=== PATIENT | female | born 1955 | race Caucasian/White ===

== ENCOUNTER 2019-07-13 12:14 | Day surgery (SDC) | payer OTHER, SELFPAY ==
[2019-07-13 13:01] VITALS: BP 123/75; PULSE 69; RESP 16; TEMP 36.3; O2SAT 100; BMI 17.9
[2019-07-13] MEDS: SODIUM CHLORIDE 0.9% 1,000 ML 200 ML IV (13:05)
--- NOTE | 2019-07-13 13:46 | PM.HP.1 ---
History of Present Illness History of Present Illness Date Patient Seen: 07/13/19 Time Patient Seen: 13:47 Chief complaint: [id number] SCREENING COLONOSCOPY Narrative: Patient presents for colorectal screening. They had previous colonoscopy 11 years ago that was reportedly negative. On further history denies any recent gastrointestinal symptoms. No nausea, vomiting, abdominal pain, loss of appetite, unexplained weight loss, change in bowel habits, diarrhea, constipation, melena, hematochezia, or bright red blood per rectum. Patient History Medical History (Updated 07/13/19 @ 13:48 by Seb Mohr MD) Breast cancer (Acute) Surgical History (Updated 07/13/19 @ 13:48 by Seb Mohr MD) H/O lumpectomy (Acute) Social History household members: none Family & Social History Social History: household members none Meds Home Medications and Allergies Home Medications Medication Instructions Recorded Confirmed Type alprazolam 0.5 mg tablet 0.5 mg PO DAILY 03/27/19 07/13/19 History tumeric 1,500 mg PO DAILY 03/27/19 04/23/19 History calcium carbonate [Calcium 500] 500 mg PO BID 07/13/19 07/13/19 History Allergies Allergy/AdvReac Type Severity Reaction Status Date / Time No Known Drug Allergies Allergy Verified 07/13/19 12:57 Review of Systems Review of Systems ROS Unobtainable: All systems reviewed & are unremarkable except as noted in HPI and below Exam Vital Signs (past 8 hours): - 07/13/19 13:01 Temperature 97.3 F L Pulse Rate 69 Respiratory Rate 16 Blood Pressure 123/75 Pulse Oximetry 100 Oxygen Delivery Method Room Air Narrative Exam Narrative: General-adult female no acute distress, well nourished HEENT-moist mucous membranes, no scleral icterus Neck-supple with full range of motion, no lymphadenopathy Chest- no labored respirations, clear to auscultation bilaterally Cardiac-regular rate and rhythm Abdomen-soft, nontender, non distended Extremities-no edema, warm well perfused Neurological-alert and oriented x 3. No focal deficits Skin-normal temperature and turgor, no rashes or ulcers Assessment & Plan Assessment and plan (1) Screening for colon cancer: Current visit: Yes Status: Acute Assessment & Plan narrative: Patient is requiring colorectal screening. Colonoscopy is recommended. Technical details were discussed. Risks, benefits, alternatives explained. Risks including but not limited to sedation, aspiration, bleeding, pain, missed lesion, incomplete examination, need for further radiographic studies, colonic perforation, need for major abdominal surgery, and all attendant risks major surgery were discussed at length. All questions were answered to their satisfaction, and they voiced understanding.
--- NOTE | 2019-07-13 14:45 | PM.OP.ENDO ---
Operative Date/Time/Diagnoses Date of procedure: 07/13/19 Time of procedure: 14:45 Pre-op diagnosis: screening colonoscopy Post-op diagnosis: same Procedure & Clinicians Study performed: colonoscopy Same procedure as scheduled: Yes Indications: 64F last colonoscopy 11 years ago presents for screening colonoscopy Surgeon: Seb Mohr Procedure Notes SCOAP/Timeout: Performed Procedure in detail: Rectal exam was performed demonstrated external hemorrhoids. Scope was inserted into the rectum and advanced through the colon. The ileocecal valve was reached. The scope was then slowly withdrawn. Pathology of the colon was notable for diverticulosis only. There were no masses polyps or colitis. The scope was retroflexed within the rectum demonstrated grade 1 internal hemorrhoids. Rectum was then desufflated and the scope removed. Scope withdrawal time: 8 Sedation minutes: 30 Findings: diverticulosis Impression: Diverticulosis Post-procedure Recommendations: Colonscopy in 10 years Disposition: same day surgery
[2019-07-13] MEDS: fentaNYL 250 MCG/5 ML INJ IV (14:48)
[2019-07-13] MEDS: MIDAZOLAM 5 MG/5 ML VIAL IV (14:49)
[2019-07-13 14:50] VITALS: BP 104/73; PULSE 70; RESP 15; TEMP 36.8; O2SAT 100
[2019-07-13 14:53] VITALS: BP 114/73; PULSE 69; RESP 16; O2SAT 100
[2019-07-13 14:56] VITALS: BP 115/73; PULSE 70; RESP 15; O2SAT 100
[2019-07-13 14:59] VITALS: BP 107/72; PULSE 69; RESP 13; O2SAT 100
[2019-07-13 15:11] VITALS: BP 116/71; PULSE 63; RESP 13; O2SAT 100
== END 2019-07-13 15:43 | disposition home or self-care (01) ==
PROVIDERS: PCP Physician Assistant; Visit Provider Surgery
PROC: 0DJD8ZZ Inspection of Lower Intestinal Tract, Via Natural or Artificial Opening Endoscopic (ICD-10-PCS; CPT 45378; principal; 2019-07-13 13:45)
DX: Z12.11 Encounter for screening for malignant neoplasm of colon (principal); K57.30 Diverticulosis of large intestine without perforation or abscess without bleeding
CPT/HCPCS: 45378; 99152; 99153; J2250; J3010

== ENCOUNTER → 2021-07-25 11:10 | Outpatient (CLI) | payer OTHER, SELFPAY ==
[2021-07-25 11:56] LABS: COVID19 -Nasal RAPID Negative (Negative)
== END ==
PROVIDERS: PCP Physician Assistant; Visit Provider Nurse Practitioner
DX: Z20.822 Contact with and (suspected) exposure to COVID-19 (principal)
CPT/HCPCS: 87635

== ENCOUNTER 2023-08-09 12:15 | Emergency (ER) | payer OTHER, SELFPAY ==
[2023-08-09 12:49] VITALS: BP 135/66; PULSE 69; RESP 17; TEMP 36.6; O2SAT 99; BMI 19.5
--- NOTE | 2023-08-09 12:55 | DI.RAD.S_ITS ---
PROCEDURE: XR HUMERUS LT 2V INDICATIONS: fall TECHNIQUE: 2 views of the humerus were acquired. COMPARISON: None. FINDINGS: Bones: Comminuted displaced angulated proximal shaft fracture of the humerus. No suspicious bony lesions. Soft tissues: No suspicious soft tissue calcifications. IMPRESSION: Comminuted, displaced, angulated proximal shaft fracture of the humerus. Dictated by: Michael Ashraf M.D. on 08/09/2023 at 13:40 Approved by: Michael Ashraf M.D. on 08/09/2023 at 13:41
[2023-08-09 14:09] VITALS: BP 147/84; PULSE 70; O2SAT 100
--- NOTE | 2023-08-09 14:20 | ED_ITS ---
HPI - Extremity Injury (Upper) General Chief Complaint: Extremity Injury, Upper Stated Complaint: fall arm injury/ diff breathing Time Seen by Provider: 08/09/23 14:03 Source: patient Mode of arrival: Ambulatory History of Present Illness HPI narrative: Patient presents for left shoulder/arm pain after fall. patient fell down several stairs, landing on L arm. Denies head injuyr, denies LOC, denies blood thinner use. Obvious deformity L shoulder Related Data Home Medications Medication Instructions Recorded Confirmed alprazolam 0.5 mg tablet 0.5 mg PO DAILY 03/27/19 07/25/21 tumeric 1,500 mg PO DAILY 03/27/19 07/25/21 calcium carbonate 500 mg calcium 500 mg PO BID 07/13/19 07/25/21 (1,250 mg) tablet (Calcium 500) Previous Rx's Medication Instructions Recorded methocarbamol 500 mg tablet 500 mg PO TID #30 tabs 08/09/23 oxycodone-acetaminophen 5 mg-325 1 tab PO Q4-6H PRN pain #14 tabs 08/09/23 mg tablet (Percocet) Allergies Allergy/AdvReac Type Severity Reaction Status Date / Time No Known Drug Allergies Allergy Verified 08/09/23 12:54 Review of Systems Review of Systems Narrative: Negative except as noted above Patient History Medical History Breast cancer Sinusitis Surgical History H/O lumpectomy Social History household members: none Smoking Status: Never smoker Smoking Status: Never smoker Alcohol type: other Substance Use Type: does not use Exam Initial Vital Signs Initial Vital Signs: Vital Signs Temperature 98 F 08/09/23 12:49 Pulse Rate 69 08/09/23 12:49 Respiratory Rate 17 08/09/23 12:49 Blood Pressure 135/66 08/09/23 12:49 Pulse Oximetry 99 08/09/23 12:49 Oxygen Delivery Method Room Air 08/09/23 12:49 Const: Awake, alert, uncomfortable Eyes: PERRL, EOMI, conjunctiva normal ENT: Atraumatic, dentition normal, mucous membranes moist MSK: deformity L shoulder, ROM decreased due to pain, shot polisher strength intact, sensation intact Skin: Warm, Dry, intact, no rashes Neuro: AO x3, CN II-XII grossly intact, moves all extremities Course Course Course Narrative: Shoulder deformity after fall. Obvious humerus fracture. Neurovascular intact. Patient given pain medications, placed in sling to gravity. Referred to or thopedics. Orders Ordered: Discontinued Medications Acetaminophen (Ofirmev) 1,000 mg in 100 mls @ 400 mls/hr IV NOW ONE Stop: 08/09/23 14:27 Last Infusion: 08/09/23 15:25 Dose: Infused Documented By: Admin: 08/09/23 14:43 Dose: 400 mls/hr Documented By: SB Ketorolac Tromethamine (Ketorolac 30 Mg/Ml Vial) 15 mg IV NOW ONE Stop: 08/09/23 14:21 Last Admin: 08/09/23 14:42 Dose: 15 mg Documented By: SB Methocarbamol (Methocarbamol 500 Mg Tablet) 750 mg PO NOW ONE Stop: 08/09/23 14:04 Last Admin: 08/09/23 14:34 Dose: 750 mg Documented By: SB Morphine Sulfate (Morphine 4 Mg/Ml Inj) 4 mg IV NOW ONE Stop: 08/09/23 14:14 Last Admin: 08/09/23 14:43 Dose: 4 mg Documented By: SB Oxycodone HCl (Oxycodone Ir 5 Mg Tablet) 5 mg PO NOW ONE Stop: 08/09/23 14:04 Last Admin: 08/09/23 15:31 Dose: Not Given Documented By: KLS Vital Signs Vital signs: Vital Signs - 8 hr 08/09/23 12:49 Temperature 98 F Pulse Rate 69 Respiratory Rate 17 Blood Pressure 135/66 Pulse Oximetry 99 Oxygen Delivery Method Room Air Discharge Plan Departure Patient Disposition: Home Clinical Impression: Fracture, humerus closed Instructions: How to Use a Sling, DI for Humeral Fracture Prescriptions: New oxycodone-acetaminophen [Percocet] 5-325 mg tablet 1 tab PO Q4-6H PRN (Reason: pain) Qty: 14 0RF methocarbamol 500 mg tablet 500 mg PO TID Qty: 30 0RF No Action alprazolam 0.5 mg tablet 0.5 mg PO DAILY tumeric 1,500 mg PO DAILY calcium carbonate [Calcium 500] 500 mg calcium (1,250 mg) Tablet 500 mg PO BID Referrals: Colleen Latif PA-C [Primary Care Provider] - Lashonda William MD [Physician] - Stand Alone Forms: Patient Portal/API
[2023-08-09] MEDS: methocarbamoL 500 MG TABLET 750 MG PO (14:34)
[2023-08-09] MEDS: KETOROLAC 30 MG/ML VIAL 15 MG IV (14:42)
[2023-08-09] MEDS: ACETAMINOPHEN IV 1,000 MG/100 ML VIAL 400 MG IV (14:43)
[2023-08-09] MEDS: MORPHINE 4 MG/ML INJ IV (14:43)
[2023-08-09 15:00] VITALS: PULSE 72; O2SAT 100
== END 2023-08-09 15:30 | disposition home or self-care (01) ==
PROVIDERS: Emergency Provider Emergency Medicine; PCP Physician Assistant
DX: S42.202A Unspecified fracture of upper end of left humerus, initial encounter for closed fracture (principal); W10.9XXA Fall (on) (from) unspecified stairs and steps, initial encounter
CPT/HCPCS: 73060; 96365; 96375; 99284; J0131; J1885; J2270

== ENCOUNTER 2023-08-20 11:31 | Day surgery (SDC) | payer OTHER, SELFPAY ==
[2023-08-19 11:38] VITALS: BMI 19.8
[2023-08-20] VITALS (9 sets, daily range): BP systolic 103–143; BP diastolic 59–88; PULSE 68–96; RESP 12–19; TEMP 36.4–36.8; O2SAT 97–99; BMI 2695.8
--- NOTE | 2023-08-20 11:40 | PM.PREOP ---
Pre-operative Note Interval Note History & Physical reviewed/Exam performed by Physician: Yes Changes to H&P: No
[2023-08-20] MEDS: LACTATED RINGERS 1,000 ML 42 ML IV (11:49)
[2023-08-20] MEDS: ACETAMINOPHEN 325 MG TABLET 975 MG PO (11:55)
[2023-08-20] MEDS: TRANEXAMIC ACID 1,000 MG VIAL 1000 MG INJ (12:00)
--- NOTE | 2023-08-20 12:27 | SUR.PREOP ---
Block start time [1219] . Monitoring initiated and maintained throughout procedure. VSS throughout procedure, patient tolerated Oxygen and medications given per anesthesiologist instructions. Patient remained stable throughout procedure, no adverse reactions noted. Block end time [1221].
[2023-08-20] MEDS: CEFAZOLIN 2 GM/100 ML PREMIX 100 ML IV (12:50)
[2023-08-20] MEDS: BUPIVACAINE 0.25% (PF) 30 ML, EPINEPHrine 0.15 MG INJ (13:14)
--- NOTE | 2023-08-20 13:45 | DI.RAD.S_ITS ---
PROCEDURE: XR SHOULDER LT MIN 2V INDICATIONS: FX FIXATION TECHNIQUE: 4 spot fluoroscopic views of the shoulder were acquired. COMPARISON: [facility], CR, XR HUMERUS LT 2V, 08/09/2023, 13:05. FINDINGS: Bones: 4 spot fluoroscopic films of the shoulder show plate and screw fixation transfixing a proximal humeral fracture. Surgical hardware appears in good position without evidence for hardware complication. Soft tissues: No suspicious soft tissue calcifications. IMPRESSION: Satisfactory appearance of plate and screw fixation transfixing a proximal left humeral fracture. Dictated by: Epi Patel M.D. on 08/20/2023 at 14:13 Approved by: Epi Patel M.D. on 08/20/2023 at 14:16
--- NOTE | 2023-08-20 14:02 | P.OP_ITS ---
Operative Date/Time/Diagnoses Date of procedure: 08/20/23 Time of procedure: 14:02 Pre-op diagnosis: Left proximal humerus fracture Post-op diagnosis: same Procedure & Clinicians Procedure: ORIF left proximal humerus Same procedure as scheduled: Yes Indications: Indications: This is a 68-year-old female who had a ground level fall sustainin g a left proximal humerus fracture. We discussed operative and nonoperative treatment options. After careful consideration she wished to go forward with operative fixation. Risks and benefits of surgery were discussed again including the risk of infection, damage to internal structures, bleeding, nerve injury, instability, need for revision surgery, blood clots, anesthesia and . No guarantees were made regarding outcomes. Patient expressed understanding and accepted these risks and wished to go forward with surgery and consent was signed. Surgeon: Obi Yusuf Click Yes if Unassisted: Yes Anesthesia Type: General Operative Notes Findings: Findings: 2-part proximal humerus fracture at the surgical neck Closure Type: primary Specimen(s): none sent Prosthetic devices, grafts, tissues, transplants, or devices: Implants: Acumed locking proximal humerus plate Estimated Blood Loss (mL): 40 Procedure in detail: Patient was seen in the preoperative holding area. The left upper extremity was examined and marked with my initials. We again went over the risks and benefits of surgery and consent was signed. The patient was brought back to the operating room and placed in a beach chair position. All bony prominences were padded. 2 g of Ancef and 1g of TXA were given. The left upper extremity was prepped and draped in the standard sterile fashion. A time-out was then performed in my initials were again confirmed on the left upper extremity. A standard deltopectoral approach was performed. The cephalic vein was encountered and moved lateral and protected throughout the remainder of the case. The clavipectoral fascia was incised and the conjoined tendon was retracted medially. On approach was noted that there was a 2 part proximal humerus fracture at the surgical neck. The subacromial space and deltoid were freed of all adhesions. The axillary nerve was identified and protected through the entirety of the procedure. The fracture site was debrided a. Fracture was reduced and held in place. We did note that there was anterior cortical read. A n proximal humeral locking plate was then fashioned and fixed to the bone just lateral to the bicipital groove with multiple locking screws in the proximal head and bicortical screws in the humeral shaft. Shoulder was then taken through range of motion under multiple fluoroscopic views in an approach withdrawal method to confirm adequate hardware placement and fracture reduction. Wounds were thoroughly irrigated. The deltopectoral interval was closed with Ethibond. The skin were then closed with 2-0 Vicryl and Monocryl. Sterile dressings were placed the patient was then brought to the postanesthesia care unit. Complications: none Post-operative Condition: stable Disposition: PACU Plan for aftercare: Postoperatively: Sling for comfort only for 2 weeks (able to come out of the sling as tolerated) then begin [id number] exercises with physical therapy. Aquacel dressing to remain on for 2 weeks. This will be removed in clinic as well as the underlying leonor. Okay to shower with soap and water running over top of the dressing. NOTE: If water gets underneath the dressing, please remove the dressing and replace with clean dry 4x4s.
== END 2023-08-20 15:00 | disposition home or self-care (01) ==
PROVIDERS: PCP Physician Assistant; Referring Provider Orthopaedic Surgery; Visit Provider Orthopaedic Surgery
PROC: (CPT 23615; principal; 2023-08-20 13:15)
DX: S42.295A Other nondisplaced fracture of upper end of left humerus, initial encounter for closed fracture (principal); G89.18 Other acute postprocedural pain
CPT/HCPCS: 23615; 64450; 73030; 76000; J0171; J0690; J1100; J2250; J2405; J2704; J3010; J3490